=== PATIENT | female | born 1980 | race Caucasian/White ===

== ENCOUNTER 2017-02-01 22:02 | Emergency (ER) | payer MEDICAID, OTHER ==
[~2017-02-01] VITALS: Ht 149.9 cm; Wt 78.0 kg
[2017-02-02 00:21] LABS: GLUCOSE URINE NEGATIVE (NEGATIVE); KETONES URINE NEGATIVE (NEGATIVE); LEUKOCYTE ESTERASE URINE TRACE (NEGATIVE); NITRITE URINE NEGATIVE (NEGATIVE); OCCULT BLOOD URINE NEGATIVE (NEGATIVE); PH URINE 6.5 (4.5-8.0); PROTEIN URINE NEGATIVE (NEGATIVE); SPECIFIC GRAVITY URINE 1.015 (1.005-1.030); UROBILINOGEN URINE 0.2 E.U./dL (0.2-1.0)
[2017-02-02 00:22] LABS: CLARITY URINE CLEAR (CLEAR); COLOR URINE STRAW (YELLOW)
[2017-02-02 00:41] LABS: SQUAMOUS EPITHELIAL CELL URINE FEW /lpf (RARE/1+)
[2017-02-02 00:43] LABS: BACTERIA URINE NONE SEEN; RBC URINE NONE SEEN /hpf (0-2)
[2017-02-02 01:39] LABS: BASOPHILS % 0.6 % (0.0-2.0); EOSINOPHILS % 1.5 % (0.0-5.0); HEMATOCRIT. 38.6 % (36.0-48.0); HEMOGLOBIN. 12.8 g/dL (12.0-16.0); MEAN CORPUSCULAR HEMOGLOBIN 27.7 pg (28.0-32.0); MEAN CORPUSCULAR HGB CONC 33.1 g/dL (31.0-37.0); MEAN CORPUSCULAR VOLUME 83.7 fL (81.0-99.0); MONOCYTES % 7.8 % (2.0-8.0); NEUTROPHILS % 63.1 % (40.0-76.0); PLATELET 206 x1000/uL (130-400); RED BLOOD CELL COUNT 4.61 mill/uL (4.2-5.4); RED CELL DISTRIBUTION WIDTH 14.1 % (11.6-14.6); WHITE BLOOD COUNT 8.6 x1000/uL (4.5-11.0)
[2017-02-02 02:55] VITALS: BP 134/70
== END 2017-02-02 04:18 | disposition home or self-care (01) ==
LOC: ER 22:02
DX: O20.0 Threatened abortion (principal); Z3A.09 9 weeks gestation of pregnancy
CPT/HCPCS: 36415; 76801; 81001; 81025; 84702; 85025; 86850; 86900; 86901; 99285; Z7610

== ENCOUNTER 2017-08-25 20:30 | Observation (INO) | payer OTHER ==
[~2017-08-25] VITALS: Ht 154.9 cm; Wt 77.6 kg
[2017-08-25] MEDS ORDERED: PNV1TABL76 PO (22:07)
== END 2017-08-25 22:20 | disposition home or self-care (01) ==
LOC: L&D 20:30
PROVIDERS: ADMIT Obstetrics & Gynecology; ATTEND Obstetrics & Gynecology
DX: O26.893 Other specified pregnancy related conditions, third trimester (principal); R10.9 Unspecified abdominal pain; Z3A.38 38 weeks gestation of pregnancy
CPT/HCPCS: 99281; G0378

== ENCOUNTER 2017-08-26 01:27 | Inpatient (IN) | payer OTHER ==
[~2017-08-26] VITALS: Ht 154.9 cm; Wt 78.9 kg
[~2017-08-26 01:27] MED LIST: PNV1TABL76 PO
[2017-08-26] MEDS ORDERED: RHO(D) IMMUNE GLOBULIN 300 MCG/SYR IM PRN (02:45)
[2017-08-26] MEDS ORDERED: METHYLERGONOVINE MALEATE 0.2 MG/ML IM PRN (02:45)
[2017-08-26] MEDS ORDERED: LANOLIN OINT 0.25 GM TUBE TOP PRN (02:45)
[2017-08-26] MEDS: DEXT 5%/LR + PITOCIN 20UNITS/L 1,000 ML IV SCH ×2 (03:16→04:17)
[2017-08-26] MEDS ORDERED: LACTATED RINGERS 1,000 ML IV SCH (03:40)
[2017-08-26 04:01] LABS: BASOPHILS % 0.4 % (0.0-2.0); EOSINOPHILS % 0.1 % (0.0-5.0); HEMATOCRIT. 35.1 % (36.0-48.0); HEMOGLOBIN. 11.8 g/dL (12.0-16.0); LYMPHOCYTES % 9.4 % (20.0-50.0); MEAN CORPUSCULAR HEMOGLOBIN 26.7 pg (28.0-32.0); MEAN CORPUSCULAR VOLUME 79.3 fL (81.0-99.0); MEAN PLATELET VOLUME 11.5 fl (7.4-10.4); MONOCYTES % 4.5 % (2.0-8.0); NEUTROPHILS % 85.6 % (40.0-76.0); PLATELET 170 x1000/uL (130-400); RED BLOOD CELL COUNT 4.43 mill/uL (4.2-5.4); RED CELL DISTRIBUTION WIDTH 13.9 % (11.6-14.6)
[2017-08-26 04:04] LABS: INR 0.9; PARTIAL THROMBOPLASTIN TIME 26.6 sec (23.4-31.0); PROTHROMBIN TIME 9.5 sec (9.4-11.6)
[2017-08-26 04:15] LABS: CHLORIDE 110 mEq/L (98-107)
[2017-08-26] MEDS: IBUPROFEN 800MG TABLET PO PRN ×2 (04:17→12:30)
[2017-08-26 04:37] LABS: CARBON DIOXIDE 17 mEq/L (21-32)
[2017-08-26 06:15] VITALS: BP 130/59
[2017-08-26 06:59] LABS: HEPATITIS B SURFACE ANTIGEN NEGATIVE; RUBELLA IGG 15.9 IU/mL (4.99-10)
[2017-08-26 09:11] LABS: *AMPHETAMINES SCREEN URINE NEGATIVE (NEGATIVE); *BARBITURATES SCREEN URINE NEGATIVE (NEGATIVE); *BENZODIAZEPINES SCREEN URINE NEGATIVE (NEGATIVE); *COCAINE SCREEN URINE NEGATIVE (NEGATIVE); CANNABINOID URINE SCREEN NEGATIVE (NEGATIVE); METHADONE URINE SCREEN NEGATIVE (NEGATIVE); OPIATES URINE SCREEN NEGATIVE (NEGATIVE); PHENCYCLIDINE URINE SCREEN NEGATIVE (NEGATIVE)
[2017-08-26] MEDS: PRENATAL VIT/FE FUMARATE/FA TABLET PO SCH (12:30)
[2017-08-26 16:55] VITALS: BP 111/52
[2017-08-26 20:00] VITALS: BP 123/60
[2017-08-27 06:35] LABS: BASOPHILS % 0.5 % (0.0-2.0); EOSINOPHILS % 1.7 % (0.0-5.0); HEMATOCRIT. 32.4 % (36.0-48.0); LYMPHOCYTES % 33.9 % (20.0-50.0); MEAN CORPUSCULAR HEMOGLOBIN 26.9 pg (28.0-32.0); MEAN CORPUSCULAR VOLUME 79.4 fL (81.0-99.0); MEAN PLATELET VOLUME 10.7 fl (7.4-10.4); MONOCYTES % 7.3 % (2.0-8.0); NEUTROPHILS % 56.6 % (40.0-76.0); PLATELET 161 x1000/uL (130-400); RED BLOOD CELL COUNT 4.08 mill/uL (4.2-5.4); RED CELL DISTRIBUTION WIDTH 13.8 % (11.6-14.6)
[2017-08-27 08:00] VITALS: BP 114/48
[2017-08-27 08:28] LABS: CLARITY URINE CLEAR (CLEAR); COLOR URINE YELLOW (YELLOW); GLUCOSE URINE 2+ (NEGATIVE); KETONES URINE TRACE (NEGATIVE); LEUKOCYTE ESTERASE URINE NEGATIVE (NEGATIVE); NITRITE URINE NEGATIVE (NEGATIVE); OCCULT BLOOD URINE 3+ (NEGATIVE); PH URINE 6.5 (4.5-8.0); PROTEIN URINE NEGATIVE (NEGATIVE); SPECIFIC GRAVITY URINE 1.011 (1.005-1.030); UROBILINOGEN URINE 0.2 E.U./dL (0.2-1.0)
[2017-08-27] MEDS: PRENATAL VIT/FE FUMARATE/FA TABLET PO SCH (09:09)
[2017-08-27] MEDS: IBUPROFEN 400MG TABLET PO PRN ×2 (09:12→18:31)
[2017-08-27 16:00] VITALS: BP 134/57
[2017-08-27 20:00] VITALS: BP 130/83
[2017-08-28 05:30] VITALS: BP 123/55
[2017-08-28] MEDS: PRENATAL VIT/FE FUMARATE/FA TABLET PO SCH (08:40)
[2017-08-28 09:44] VITALS: BP 137/52
== END 2017-08-28 12:40 | disposition home or self-care (01) | DRG 560 ==
LOC: OBSVTOIN 01:27 → L&D 01:27 → 7EST PP/OB 07:54
PROVIDERS: ADMIT Obstetrics & Gynecology; ATTEND Obstetrics & Gynecology
PROC: 10E0XZZ Delivery of Products of Conception, External Approach (ICD-10-PCS; principal; 2017-08-27)
DX: O80 Encounter for full-term uncomplicated delivery (principal); D62 Acute posthemorrhagic anemia; O99.03 Anemia complicating the puerperium; Z37.0 Single live birth; Z3A.39 39 weeks gestation of pregnancy
CPT/HCPCS: 36415; 80053; 80305; 81001; 84550; 85025; 85384; 85610; 85730; 86592; 86703; 86762; 86850; 86900; 87340; J2590; J7120

== ENCOUNTER 2022-12-28 04:37 | Observation (INO) | payer OTHER ==
[~2022-12-28] VITALS: Ht 149.9 cm; Wt 84.4 kg
[2022-12-28] MEDS ORDERED: LACTATED RINGERS 1,000 ML IV SCH (06:00)
[2022-12-28] MEDS ORDERED: ACETAMINOPHEN 325MG TABLET PO ONE (06:00)
[2022-12-28] MEDS: LACTATED RINGERS 1,000 ML IV SCH ×2 (06:44→09:56)
[2022-12-28 08:08] LABS: CLARITY URINE TURBID (CLEAR); COLOR URINE DARK YELLOW (YELLOW); KETONES URINE TRACE (NEGATIVE); LEUKOCYTE ESTERASE URINE 2+ (NEGATIVE); NITRITE URINE NEGATIVE (NEGATIVE); OCCULT BLOOD URINE 3+ (NEGATIVE); PH URINE 5.5 (4.5-8.0); PROTEIN URINE 1+ (NEGATIVE); SPECIFIC GRAVITY URINE 1.026 (1.005-1.030)
[2022-12-28] MEDS ORDERED: CEFAZOLIN 2,000 MG in DEXT 5% WATER 100 ML IV SCH (10:00)
[2022-12-28 10:17] LABS: BASOPHILS % 0.2 % (0.0-2.0); EOSINOPHILS % 0.2 % (0.0-5.0); HEMATOCRIT. 35.4 % (36.0-48.0); HEMOGLOBIN. 11.8 g/dL (12.0-16.0); LYMPHOCYTES % 14.8 % (20.0-50.0); MEAN CORPUSCULAR HEMOGLOBIN 27.5 pg (28.0-32.0); MEAN CORPUSCULAR VOLUME 82.5 fL (81.0-99.0); MEAN PLATELET VOLUME 9.8 fl (7.4-10.4); MONOCYTES % 6.4 % (2.0-8.0); NEUTROPHILS % 78.4 % (40.0-76.0); PLATELET 216 x1000/uL (130-400); RED BLOOD CELL COUNT 4.29 mill/uL (4.2-5.4); RED CELL DISTRIBUTION WIDTH 14.1 % (11.6-14.6)
[2022-12-28 10:37] LABS: CHLORIDE 112 mEq/L (98-107)
== END 2022-12-28 13:35 | disposition home or self-care (01) ==
LOC: 8 EST LDRP 04:37
PROVIDERS: ADMIT Obstetrics & Gynecology; ATTEND Obstetrics & Gynecology
DX: O26.892 Other specified pregnancy related conditions, second trimester (principal); R10.9 Unspecified abdominal pain; Z3A.26 26 weeks gestation of pregnancy
CPT/HCPCS: 36415; 59025; 76770; 76805; 80053; 81003; 85025; 96361; 96365; G0378; J0690; J7060; 96360; 99281

== ENCOUNTER 2023-03-31 23:33 | Inpatient (IN) | payer OTHER ==
[~2023-03-31] VITALS: Ht 149.9 cm; Wt 86.6 kg
[2023-04-01] MEDS ORDERED: METHYLERGONOVINE MALEATE 0.2 MG/ML IM PRN (07:30)
[2023-04-01] MEDS ORDERED: LIDOCAINE HCL 1% 20ML VIAL (Pyxis) INJ INFIL SCH (07:30)
[2023-04-01] MEDS ORDERED: LACTATED RINGERS 1,000 ML IV SCH (07:30)
[2023-04-01] MEDS ORDERED: MISOPROSTOL 100MCG TABLET VG SCH (07:30)
[2023-04-01] MEDS ORDERED: NALOXONE HCL 0.4 MG/ML 1ML VIAL IM PRN (07:30)
[2023-04-01] MEDS ORDERED: CARBOPROST TROMETHAMINE 250 MCG/ML AMPUL IM PRN (07:30)
[2023-04-01 07:59] LABS: BASOPHILS % 0.5 % (0.0-2.0); EOSINOPHILS % 0.6 % (0.0-5.0); HEMATOCRIT. 37.8 % (36.0-48.0); HEMOGLOBIN. 12.7 g/dL (12.0-16.0); LYMPHOCYTES % 22.8 % (20.0-50.0); MEAN CORPUSCULAR HEMOGLOBIN 26.4 pg (28.0-32.0); MEAN CORPUSCULAR VOLUME 78.6 fL (81.0-99.0); MEAN PLATELET VOLUME 11.4 fl (7.4-10.4); MONOCYTES % 6.8 % (2.0-8.0); NEUTROPHILS % 69.3 % (40.0-76.0); PLATELET 218 x1000/uL (130-400); RED CELL DISTRIBUTION WIDTH 14.4 % (11.6-14.6)
[2023-04-01 10:48] LABS: INR 0.9; PARTIAL THROMBOPLASTIN TIME 27.3 sec (23.4-31.0); PROTHROMBIN TIME 9.8 sec (9.6-11.0)
[2023-04-01 12:30] LABS: HEPATITIS B SURFACE ANTIGEN NEGATIVE
[2023-04-01] MEDS ORDERED: ONDANSETRON HCL 4MG/2ML INJ IV PRN (18:45)
[2023-04-01] MEDS ORDERED: MEPERIDINE HCL/PF 50MG/ML CPJ IM NR (18:45)
[2023-04-01] MEDS ORDERED: ROPIVACAINE HCL/PF EPIDURAL 200 ML EPI SCH (21:00)
[2023-04-01] MEDS ORDERED: ROPIVACAINE HCL/PF EPIDURAL 200 ML EPI ONE (21:11)
[2023-04-01] MEDS ORDERED: FENTANYL CITRATE/PF 50MCG/ML 2ML VIAL ONE (21:12)
[2023-04-01] MEDS: LACTATED RINGERS 1,000 ML IV SCH (21:41)
[2023-04-02] MEDS: LACTATED RINGERS 1,000 ML IV SCH (00:11)
[2023-04-02] MEDS ORDERED: TERBUTALINE SULFATE 1MG/ML VIAL ONE (01:02)
[2023-04-02] MEDS ORDERED: TERBUTALINE SULFATE 1MG/ML VIAL SUBCUT ONE (01:30)
[2023-04-02] MEDS ORDERED: TERBUTALINE SULFATE 1MG/ML VIAL SUBCUT NR (01:30)
[2023-04-02] MEDS ORDERED: ACETAMINOPHEN 325MG TABLET PO ONE ×2 (02:30→06:00)
[2023-04-02] MEDS ORDERED: AMPICILLIN 2,000 MG in SODIUM CHLORIDE 0.9% 100 ML IV NR (02:30)
[2023-04-02] MEDS ORDERED: GENTAMICIN 80MG PREMIX 100 ML IV NR (02:30)
[2023-04-02] MEDS ORDERED: TERBUTALINE SULFATE 2.5MG TABLET PO SCH (08:00)
[2023-04-02] MEDS ORDERED: AMPICILLIN 2,000 MG in SODIUM CHLORIDE 0.9% 100 ML IV SCH (09:00)
[2023-04-02] MEDS: OXYTOCIN 30 UNITS/500ML NS PMX 500 ML IV SCH ×2 (09:27→11:45)
[2023-04-02] MEDS ORDERED: OXYTOCIN 30 UNITS/500ML NS PMX 500 ML IV SCH (10:15)
[2023-04-02] MEDS ORDERED: RHO(D) IMMUNE GLOBULIN 300 MCG/SYR IM PRN (10:15)
[2023-04-02] MEDS ORDERED: METHYLERGONOVINE MALEATE 0.2 MG/ML IM PRN (10:15)
[2023-04-02] MEDS ORDERED: LANOLIN OINT 7GM TUBE TOP PRN (10:15)
[2023-04-02] MEDS ORDERED: IBUPROFEN 400MG TABLET PO PRN (10:15)
[2023-04-02] MEDS ORDERED: GENTAMICIN 80MG PREMIX 100 ML IV SCH (11:00)
[2023-04-02] MEDS: IBUPROFEN 800MG TABLET PO PRN ×2 (12:58→21:33)
[2023-04-02 15:30] VITALS: BP 118/55
[2023-04-02 16:00] VITALS: BP 127/56
[2023-04-02 20:00] VITALS: BP 105/73
[2023-04-03 04:20] VITALS: BP 105/53
[2023-04-03 06:06] LABS: BASOPHILS % 0.3 % (0.0-2.0); EOSINOPHILS % 1.3 % (0.0-5.0); HEMOGLOBIN. 10.6 g/dL (12.0-16.0); LYMPHOCYTES % 17.5 % (20.0-50.0); MEAN CORPUSCULAR HEMOGLOBIN 26.9 pg (28.0-32.0); MEAN PLATELET VOLUME 10.8 fl (7.4-10.4); MONOCYTES % 5.2 % (2.0-8.0); NEUTROPHILS % 75.7 % (40.0-76.0); PLATELET 154 x1000/uL (130-400); RED BLOOD CELL COUNT 3.93 mill/uL (4.2-5.4); RED CELL DISTRIBUTION WIDTH 14.9 % (11.6-14.6)
[2023-04-03] MEDS ORDERED: PRENATAL VIT/FE FUMARATE/FA TABLET PO SCH (09:00)
== END 2023-04-03 16:25 | disposition home or self-care (01) | DRG 560 ==
LOC: OBSVTOIN 23:33 → 8 EST LDRP 23:33 → 8EST 04-02 14:00
PROVIDERS: ADMIT Obstetrics & Gynecology; ATTEND Obstetrics & Gynecology
PROC: 10E0XZZ Delivery of Products of Conception, External Approach (ICD-10-PCS; principal; 2023-04-01)
PROC: 3E0R3BZ Introduction of Anesthetic Agent into Spinal Canal, Percutaneous Approach (ICD-10-PCS; 2023-04-01)
PROC: 00HU33Z Insertion of Infusion Device into Spinal Canal, Percutaneous Approach (ICD-10-PCS; 2023-04-01)
DX: O69.1XX0 Labor and delivery complicated by cord around neck, with compression, not applicable or unspecified (principal); Z37.0 Single live birth; D62 Acute posthemorrhagic anemia; Z3A.39 39 weeks gestation of pregnancy
CPT/HCPCS: 36415; 76805; 85025; 86592; 86703; 86762; 86850; 86900; 87340; 99281; G0378; J0290; J1580; J2175; J2795; J3010; J3105; J7050; J7120; A4315; J2590